=== PATIENT | female | born 1990 | race Caucasian/White ===

== ENCOUNTER 2024-03-22 10:00 | Emergency (ER) | payer OTHER ==
[~2024-03-22] VITALS: Ht 157.5 cm; Wt 59.0 kg
[2024-03-22 10:03] VITALS: O2SAT 99
[2024-03-22] MEDS ORDERED: SUCRALFATE 1 G/10 ML LIQUID UDC ONE (10:42)
[2024-03-22] MEDS ORDERED: FAMOTIDINE 20 MG TABLET ONE (10:42)
[2024-03-22] MEDS ORDERED: MAG HYDROX/AL HYDROX/SIMETH 30 ML LIQUID UDC ONE (10:43)
[2024-03-22] MEDS ORDERED: SUCRALFATE 1 G TABLET PO ONE (10:45)
[2024-03-22] MEDS: FAMOTIDINE 20 MG TABLET PO ONE (10:47)
[2024-03-22] MEDS: MAG HYDROX/AL HYDROX/SIMETH 30 ML LIQUID UDC PO ONE (10:47)
[2024-03-22] MEDS ORDERED: SUCR1ORA PO (11:49)
[2024-03-22] MEDS ORDERED: FAMO20TA8 PO (11:49)
== END 2024-03-22 11:54 | disposition home or self-care (01) ==
LOC: ER 10:00
DX: R05.9 Cough, unspecified (principal); K21.9 Gastro-esophageal reflux disease without esophagitis; N93.9 Abnormal uterine and vaginal bleeding, unspecified; Z79.899 Other long term (current) drug therapy
CPT/HCPCS: 36415; 71045; 76815; 86900; 86901; A4606; A4663